=== PATIENT | male | born 1995 | race Caucasian/White ===

== ENCOUNTER 2017-08-17 06:38 | Emergency (ER) | payer OTHER ==
[2017-08-17 06:50] VITALS: RESP 18
--- NOTE | 2017-08-17 07:12 | CPEKG ---
Heart Rate: 71 RR Interval: 845 P-R Interval: 164 QRSD Interval: 104 QT Interval: 400 QTC Interval: 435 P [place]: 58 QRS [place]: 78 T Wave [place]: 41 EKG Severity - BORDERLINE ECG - EKG Impression: SINUS ARRHYTHMIA, RATE 54-82 EKG Impression: INFERIOR Q WAVES, PROBABLY NORMAL VARIATION Electronically Signed By: Marian Rico 17-Aug-2017 14:26:42
--- NOTE | 2017-08-17 07:44 | EDPHY ---
H & P Time Seen by Provider: 08/17/17 07:13 HPI/ROS: CHIEF COMPLAINT: "I used cocaine and had a panic attack " HISTORY OF PRESENT ILLNESS: Patient is a 21-year-old male who presents emergency department after using cocaine. He states last evening he drank alcohol smoked marijuana in used cocaine. He took approximately 0.5 g of cocaine. When he was snorting last line he became anxious. He feels he had a "panic attack." He denies any chest pain or shortness of breath. He states his symptoms feel much better at this point. He states "I think over reacted." He denies any recent trauma. No recent travel. No leg pain or swelling. REVIEW OF SYSTEMS: My complete review of systems is negative except as mentioned in the HPI. Past Medical/Surgical History: Concussion Past surgical history: Denies Social history: The patient smokes alcohol. He smokes. He uses cocaine. Smoking Status: Heavy smoker Physical Exam: Vitals noted. 135/103, 122, 18, 99% on room air. 37 GENERAL: Well-appearing, in no acute distress, alert. HEENT: Eyes dilated but reactive. Symmetric. Normal pharynx, no signs of dehydration. NECK: No thyromegaly, no lymphadenopathy, supple. RESPIRATORY: Clear to auscultation bilaterally, no rales, rhonchi or wheezing. CVS: Tachycardia with regular rhythm, no rubs, murmurs, or gallops. ABDOMEN: Soft, nontender, nondistended, no organomegaly. BACK: Normal to inspection, no CVA tenderness. SKIN: Normal color, no rash, warm, dry. No pallor. EXTREMITIES: No pedal edema, no calf tenderness, no Homans sign or cords, no joint swelling. NEURO/PSYCH: Alert and oriented x3, normal mood and affect, normal motor sensory exam. Constitutional: Initial Vital Signs Temperature (C) 37 C 08/17/17 06:43 Heart Rate 122 H 08/17/17 06:43 Respiratory Rate 18 08/17/17 06:43 Blood Pressure 135/103 H 08/17/17 06:43 O2 Sat (%) 99 08/17/17 06:43 O2 Delivery Mode Room Air Allergies/Adverse Reactions: No Allergies [NKA] Allergy (Verified 08/17/17 06:50) Home Medications: Medication Instructions Recorded NK [No Known Home Meds] 08/17/17 Medical Decision Making - Diagnostics EKG Interpretation: EKG shows normal sinus rhythm, normal rate, normal axis, normal intervals. There are no ST or T-wave abnormalities. EKG is normal as interpreted by me. ED Course/Re-evaluation: In the emergency department I discussed possible etiologies with the patient. I answered all his questions. I discussed his EKG. I discussed the need to stop using illicit drugs. I offered him detox but he did not want. I answered all the patient's questions. He is given warnings prior to leaving. Differential Diagnosis: My differential includes but is not limited to cocaine use, stimulant use, ACS, acute GA, dysrhythmia, anxiety, dehydration Departure - Departure Disposition: Home, Routine, Self-Care Clinical Impression: Cocaine use, Anxiety Condition: Good Instructions: Cocaine Abuse (ED) Additional Instructions: You should avoid using cocaine. Return with increasing chest pain, shortness of breath, worsening anxiety, feelings of despair, or any other concerns. Referrals: [facility] [Other] - As per Instructions
[2017-08-17 07:55] VITALS: BP 122/76; PULSE 90; TEMP 97.3; O2SAT 95
== END 2017-08-17 07:55 | disposition home or self-care (01) ==
DX: F14.90 Cocaine use, unspecified, uncomplicated (principal); F41.9 Anxiety disorder, unspecified; F17.200 Nicotine dependence, unspecified, uncomplicated